=== PATIENT | male | born 1960 | race Caucasian/White ===

== ENCOUNTER 2017-08-20 14:26 | Emergency (ER) | payer MEDICARE ==
[2017-08-20 14:38] VITALS: BP 157/77; PULSE 75; RESP 18; TEMP 98.4
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
--- NOTE | 2017-08-20 16:12 | CT ---
EXAMINATION TYPE: CT brain wo con DATE OF EXAM: 08/20/2017 COMPARISON: NONE HISTORY: Injury and laceration to top of head. CT DLP: 1065.2 mGycm. Automated Exposure Control for Dose Reduction was Utilized. TECHNIQUE: CT scan of the head is performed without contrast. FINDINGS: There is no acute intracranial hemorrhage, mass effect, or midline shift identified. The ventricles and sulci are within normal limits in size. The globes are intact. Minimal mucosal thick ening is seen within the maxillary sinuses and sphenoid sinuses. Mild mucosal thickening is present w ithin the ethmoid sinuses. 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 Left frontal scalp laceration is seen with punctate foci of emphysema. No subcutaneous hematoma or gottlieb spicious extra-axial fluid collection. IMPRESSION: 1. Left frontal scalp laceration near the vertex with no subcutaneous hematoma or evidence of acute i ntracranial hemorrhage. No acute intracranial process. 2. 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
[2017-08-20] MEDS ORDERED: LIDOCAINE 1% INJ 10MG/ML (20 ML MDV) SQ ONE (16:14)
== END 2017-08-20 16:57 | disposition home or self-care (01) ==
LOC: EC 14:26
DX: S01.01XA Laceration without foreign body of scalp, initial encounter (principal); V98.8XXA Other specified transport accidents, initial encounter; Y92.410 Unspecified street and highway as the place of occurrence of the external cause
CPT/HCPCS: 99283; 12002; 70450; J2001

== ENCOUNTER 2018-08-11 19:32 | Emergency (ER) | payer MEDICARE ==
[2018-08-11 19:40] VITALS: BP 125/79; PULSE 45; RESP 16; TEMP 97.1
[2018-08-11] MEDS ORDERED: MORPHINE SULFATE 4 MG/ML SYRINGE IVP STA (19:55)
[2018-08-11] MEDS ORDERED: KETOROLAC 30 MG/ML 1 ML VIAL IVP STA (19:55)
[2018-08-11] MEDS ORDERED: DIAZEPAM 5 MG/ML 2 ML INJ IVP STA (19:55)
--- NOTE | 2018-08-11 20:02 | ED ---
Back Pain HPI - General Chief Complaint: Back Pain/Injury Stated Complaint: Back Pain Time Seen by Provider: 08/11/18 19:33 Source: EMS, RN notes reviewed, old records reviewed Limitations: no limitations - History of Present Illness Initial Comments: This is a 58-year-old male the ER for evaluation patient does say for evaluation regards to back pain severe back pain that started yesterday while picking some weeds in his garden. He states he hasn't difficulty with a little tree stop her a pop in his back had difficulty and bleeding secondary significant pain after the event. Patient was able to get himself in the bed, the pain was severe by states he was near syncopal at that time. Patient denies current headache chest pain shortness of breath or abdominal pain. Patient still complaining of severe back. Pain persisted throughout the day despite attempts at stretching, no medication was taken. Patient denies loss of bowel or bladder. No numbness or tingling in legs MD Complaint: back pain, back injury -: days(s) Similar Symptoms Previously: Yes Place: home Radiation: buttocks Severity: severe Severity scale (1-10): 8 Quality: dull, aching Consistency: constant Improves With: immobilization Worsens With: movement, sitting upright, walking Context: while lifting, turning/twisting, bending Associated Symptoms: difficulty walking, syncope (near) - Related Data Home Medications Medication Instructions Recorded Confirmed Sertraline HCl [Zoloft] 100 mg PO HS 08/11/18 08/11/18 Terazosin [Hytrin] 5 mg PO HS 08/11/18 08/11/18 Verapamil HCl [Verapamil ER] 240 mg PO DAILY 08/11/18 08/11/18 hydrOXYzine HCL [Atarax] 50 mg PO BID 08/11/18 08/11/18 traZODone HCL 100 mg PO HS 08/11/18 08/11/18 Allergies Allergy/AdvReac Type Severity Reaction Status Date / Time No Known Allergies Allergy Verified 08/11/18 20:23 Review of Systems ROS Statement: Those systems with pertinent positive or pertinent negative responses have been documented in the HPI. ROS Other: All systems not noted in ROS Statement are negative. Past Medical History Past Medical History: Hypertension History of Any Multi-Drug Resistant Organisms: None Reported Past Surgical History: Hernia Repair Past Psychological History: No Psychological Hx Reported Smoking Status: Never smoker Past Alcohol Use History: None Reported Past Drug Use History: Marijuana General Exam Limitations: no limitations General appearance: alert, in no apparent distress Head exam: Present: atraumatic, normocephalic, normal inspection Eye exam: Present: normal appearance, PERRL, EOMI. Absent: scleral icterus, conjunctival injection, periorbital swelling ENT exam: Present: normal exam, mucous membranes moist Neck exam: Present: normal inspection. Absent: tenderness, meningismus, lymphadenopathy Respiratory exam: Present: normal lung sounds bilaterally. Absent: respiratory distress, wheezes, rales, rhonchi, stridor Cardiovascular Exam: Present: regular rate, normal rhythm, normal heart sounds. Absent: systolic murmur, diastolic murmur, rubs, gallop, clicks GI/Abdominal exam: Present: soft, normal bowel sounds. Absent: distended, tenderness, guarding, rebound, rigid Extremities exam: Present: normal inspection, full ROM, normal capillary refill. Absent: tenderness, pedal edema, joint swelling, calf tenderness Back exam: Present: normal inspection Neurological exam: Present: alert, oriented X3, CN II-XII intact Psychiatric exam: Present: normal affect, normal mood Skin exam: Present: warm, dry, intact, normal color. Absent: rash Course Vital Signs 08/11/18 19:34 Temperature 97.1 F L Pulse Rate 45 L Respiratory 16 Rate Blood Pressure 125/79 O2 Sat by Pulse 98 Oximetry - Reevaluation(s) Reevaluation #1: 08/11/18 21:29 Medical record reviewed Reevaluation #2: 08/11/18 21:29 [place] Well-controlled, patient is ambulatory Medical Decision Making - Medical Decision Making 58 male the ER for evaluation, this patient resents today for evaluation regards to back pain with acute back injury, back sprain. Patient given anti- inflammatories for discharge. 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
--- NOTE | 2018-08-11 20:45 | XR ---
EXAMINATION TYPE: XR lumbosacral spine min 4V DATE OF EXAM: 08/11/2018 COMPARISON: NONE HISTORY: Back pain TECHNIQUE: 5 views FINDINGS: Vertebra have normal alignment. Posterior elements are intact. Disc spaces are fairly janny l. Sacroiliac joints appear normal. IMPRESSION: Negative lumbar spine exam. No fracture.
[2018-08-11] MEDS ORDERED: ACET/COD 300 MG/30 MG STARTER PACK 6 TAB BTL PO STA (21:31)
== END 2018-08-11 22:08 | disposition home or self-care (01) ==
LOC: EC 19:32
DX: S39.012A Strain of muscle, fascia and tendon of lower back, initial encounter (principal); I10 Essential (primary) hypertension; Z79.899 Other long term (current) drug therapy; X50.1XXA Overexertion from prolonged static or awkward postures, initial encounter; Y93.H2 Activity, gardening and landscaping; Y92.007 Garden or yard of unspecified non-institutional (private) residence as the place of occurrence of the external cause
CPT/HCPCS: 72110; 99284; 96374; 96375 ×2; J2270; J3360; J1885